=== PATIENT | male | born 1965 | race Caucasian/White ===

== ENCOUNTER 2016-09-28 17:53 | Emergency (ER) | payer OTHER ==
--- NOTE | 2016-09-28 18:47 | ED NURSING NOTES ---
Clinical Report - Nurses [facility] [place] [address] 09/28/2016 17:53 Patient: KLEVER CALI TRIAGE Triage time 1750. Acuity: LEVEL 4. Chief Complaint: RIGHT LOWER EXTREMITY PAIN and SWELLING. --18:05 Deidre Uriarte R.N. 18:00 09/28/16. BP: 107/90. HR: 75 (normal rate). RR: 16. O2 saturation: 96%. Temp: 98.2 F. Pain level now: 03/01. --18:05 Deidre Uriarte R.N. Weight: 173.2 kg stated. Height/Length: 71 inches. BMI: 53.3. --18:00 Deidre Uriarte R.N. Medications Albuterol Sulfate Inhalation. --18:03 Deidre Uriarte R.N. Midigare. --18:03 Deidre Uriarte R.N. Allergies Aspirin. Mild(rash) Ibuprofen. Mild(rash) Penicillin. --18:03 Deidre Uriarte R.N. History Arrived by private vehicle. Historian: patient. No injury occurred. This occurred (2 weeks). ( just got pain in right knee 2 weeks ago. He has seen and was referred to [facility]. They told patient they could not see him and sent referal back to and has not gotten back to patient). SOCIAL HX: Heavy tobacco smoker (cigarette)- less than 1 pack per day. No alcohol use or drug use. FALL RISK ASSESSMENT: Fall risk assessment completed. No fall risk identified. NUTRITIONAL RISK ASSESSMENT: The nutritional risk assessment revealed no deficiencies. FUNCTIONAL ASSESSMENT: Functional assessment: no impairments noted. LEARNING NEEDS ASSESSMENT: The learning needs assessment revealed no barriers. SKIN INTEGRITY ASSESSMENT: Skin integrity risk assessment completed. No skin integrity risk identified. --18:05 Deidre Uriarte R.N. PROBLEMS: Hepatitis. Gout. MRSA Infection. Asthma. Back Pain. --18:04 Uriarte, Deidre, R.N. ADDITIONAL SURGERIES: Ankle surgery. Finger fusion. Knee Surgery. --18:04 Deidre Uriarte R.N. Interventions ID band on patient. To treatment room. --18:05 Deidre Uriarte R.N. PHYSICAL ASSESSMENT 18:06 09/28/16. Ambulatory to room. GENERAL / NEURO / PSYCH: Oriented X 4. Appears in no acute distress. EXTREMITIES: Limited ROM present. Lower extremity edema. Extremity pulses are within normal limits. Neuro-vascular status intact to the extremity. Right knee: tenderness and swelling. Limited ROM secondary to pain. SKIN: Skin intact. Skin is warm and dry. --18:06 Deidre Uriarte R.N. NURSING PROGRESS NOTES 18:07 09/28/16. The plan of care for this patient includes an assessment with efforts to address the presence of pain. Two patient identifiers checked. Call light placed in reach. Side rails up x 1. Bed placed in lowest position. Brakes of bed on. Patient ready for evaluation- PA notified. --18:07 Deidre Uriarte R.N. <<STRICKEN ENTRY-- 17:45 09/28/16. BP: 113/56. HR: 103 (normal rate). RR: 18 (unlabored). O2 saturation: 96%. Pain level now: 0/10. --18:10 Deidre Uriarte R.N. --END STRIKE>> Charted on wrong patient. --18:11 Deidre Uriarte R.N. 17:45. --18:10 Deidre Uriarte R.N. 18:22 09/28/2016 Percocet (Oxycodone-Acetaminophen) PO 10/650 mg Tablets 1 tab given. Allergies verified, confirmed 5 rights and sedative warning given to the patient. --18:22 Deidre Uriarte R.N. DISPOSITION / DISCHARGE 18:47 09/28/16. Condition at departure: improved. The goals identified in the patient's plan of care were met. No learning barriers present. Discharge instructions provided and reviewed with the patient. Reviewed medication(s). Prescription(s) given to the patient ([facility]). Reviewed referrals. Patient verbalized understanding. Written instructions provided in Romansh. The patient was discharged home and accompanied by spouse. He left the Emergency Department ambulatory on crutches and via private vehicle. Spouse driving. --18:47 Deidre Uriarte R.N. 18:47 09/28/16. BP: 114/78. HR: 77. RR: 16. O2 saturation: 94%. Temp: 98.6 F. Pain level now 8/10. --18:47 Deidre Uriarte R.N. Departure time: 1850. --18:47 Deidre Uriarte R.N. Locked/Released at 09/28/2016 18:50 by Deidre Uriarte R.N.
--- NOTE | 2016-09-28 18:47 | ED NURSING NOTES ---
Clinical Report - Nurses [facility] [place] [address] 09/28/2016 17:53 Patient: KLEVER CALI TRIAGE Triage time 1750. Acuity: LEVEL 4. Chief Complaint: RIGHT LOWER EXTREMITY PAIN and SWELLING. --18:05 Deidre Uriarte R.N. 18:00 09/28/16. BP: 107/90. HR: 75 (normal rate). RR: 16. O2 saturation: 96%. Temp: 98.2 F. Pain level now: 03/01. --18:05 Deidre Uriarte R.N. Weight: 173.2 kg stated. Height/Length: 71 inches. BMI: 53.3. --18:00 Deidre Uriarte R.N. Medications Albuterol Sulfate Inhalation. --18:03 Deidre Uriarte R.N. Midigare. --18:03 Deidre Uriarte R.N. Allergies Aspirin. Mild(rash) Ibuprofen. Mild(rash) Penicillin. --18:03 Deidre Uriarte R.N. History Arrived by private vehicle. Historian: patient. No injury occurred. This occurred (2 weeks). ( just got pain in right knee 2 weeks ago. He has seen and was referred to [facility]. They told patient they could not see him and sent referal back to and has not gotten back to patient). SOCIAL HX: Heavy tobacco smoker (cigarette)- less than 1 pack per day. No alcohol use or drug use. FALL RISK ASSESSMENT: Fall risk assessment completed. No fall risk identified. NUTRITIONAL RISK ASSESSMENT: The nutritional risk assessment revealed no deficiencies. FUNCTIONAL ASSESSMENT: Functional assessment: no impairments noted. LEARNING NEEDS ASSESSMENT: The learning needs assessment revealed no barriers. SKIN INTEGRITY ASSESSMENT: Skin integrity risk assessment completed. No skin integrity risk identified. --18:05 Deidre Uriarte R.N. PROBLEMS: Hepatitis. Gout. MRSA Infection. Asthma. Back Pain. --18:04 Uriarte, Deidre, R.N. ADDITIONAL SURGERIES: Ankle surgery. Finger fusion. Knee Surgery. --18:04 Deidre Uriarte R.N. Interventions ID band on patient. To treatment room. --18:05 Deidre Uriarte R.N. PHYSICAL ASSESSMENT 18:06 09/28/16. Ambulatory to room. GENERAL / NEURO / PSYCH: Oriented X 4. Appears in no acute distress. EXTREMITIES: Limited ROM present. Lower extremity edema. Extremity pulses are within normal limits. Neuro-vascular status intact to the extremity. Right knee: tenderness and swelling. Limited ROM secondary to pain. SKIN: Skin intact. Skin is warm and dry. --18:06 Deidre Uriarte R.N. NURSING PROGRESS NOTES 18:07 09/28/16. The plan of care for this patient includes an assessment with efforts to address the presence of pain. Two patient identifiers checked. Call light placed in reach. Side rails up x 1. Bed placed in lowest position. Brakes of bed on. Patient ready for evaluation- PA notified. --18:07 Deidre Uriarte R.N. <<STRICKEN ENTRY-- 17:45 09/28/16. BP: 113/56. HR: 103 (normal rate). RR: 18 (unlabored). O2 saturation: 96%. Pain level now: 0/10. --18:10 Deidre Uriarte R.N. --END STRIKE>> Charted on wrong patient. --18:11 Deidre Uriarte R.N. 17:45. --18:10 Deidre Uriarte R.N. 18:22 09/28/2016 Percocet (Oxycodone-Acetaminophen) PO 10/650 mg Tablets 1 tab given. Allergies verified, confirmed 5 rights and sedative warning given to the patient. --18:22 Deidre Uriarte R.N. DISPOSITION / DISCHARGE 18:47 09/28/16. Condition at departure: improved. The goals identified in the patient's plan of care were met. No learning barriers present. Discharge instructions provided and reviewed with the patient. Reviewed medication(s). Prescription(s) given to the patient ([facility]). Reviewed referrals. Patient verbalized understanding. Written instructions provided in Greenlandic. The patient was discharged home and accompanied by spouse. He left the Emergency Department ambulatory on crutches and via private vehicle. Spouse driving. --18:47 Deidre Uriarte R.N. 18:47 09/28/16. BP: 114/78. HR: 77. RR: 16. O2 saturation: 94%. Temp: 98.6 F. Pain level now 8/10. --18:47 Deidre Uriarte R.N. Departure time: 1850. --18:47 Deidre Uriarte R.N. Locked/Released at 09/28/2016 18:50 by Deidre Uriarte R.N.
--- NOTE | 2016-09-28 18:47 | ED CLINICAL REPORT ---
Clinical Report - Physicians/Mid Levels [address] [address] [place] [address] 09/28/2016 17:53 Patient: KLEVER CALI Time Seen: 18:56 Sep 28 2016. Arrived- By private vehicle. Historian- patient. HISTORY OF PRESENT ILLNESS Chief Complaint: Injury to right knee. 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 This was not caused by a direct blow, a twisting injury or an incised wound. Patient did not fall. Patient is experiencing mild pain. Patient denies injury to the head or neck. (Reports knee pain over the last 2 weeks, worsening. Saw his primary care provider, was referred to orthopedist, such referral has been lost, and he does not have current follow-up.). REVIEW OF SYSTEMS The patient complains of pain on weight bearing. All systems otherwise negative, except as recorded above. PAST HISTORY The patient has not had a prior injury to the same area. Problems: Sprain. Fall. Hepatitis. Lower Extremity Pain. Gout. MRSA Infection. Contusion. Asthma. Back Pain. Rib Fracture [RuleOut]. Additional Surgeries: Ankle surgery. Finger fusion. Knee Surgery. Medications: Midigare. Albuterol Sulfate Inhalation. Allergies: Aspirin. Mild(rash) Ibuprofen. Mild(rash) Penicillin. SOCIAL HISTORY Heavy tobacco smoker. No drug use. ADDITIONAL NOTES The nursing notes have been reviewed. PHYSICAL EXAM Vital Signs: 09/28/2016 18:00 BP: 107/90. HR: 75. RR: 16. O2 saturation: 96%. Temp: 98.2 F. Pain level now: 9/10. Appearance: Alert. Head: Head atraumatic. Eyes: Eyes normal inspection. ENT: Ears normal. Nose normal. Neck: Normal inspection. Neck supple. CVS: Normal heart rate and rhythm. Heart sounds normal. Respiratory: No respiratory distress. Breath sounds normal. Back: Normal inspection. No tenderness. No vertebral point tenderness or soft tissue tenderness. Skin: Skin warm. Normal skin color. Extremities: Right thigh. No tenderness or swelling. Right knee: mild tenderness located in the suprapatellar area. (swelling prepatella, full rom.). No ligamentous laxity present. No joint effusion. No abrasion, puncture wound or foreign body. No limitation in ROM. Right leg. No ecchymosis. Neuro, Vascular and Tendons: Vascular status intact. Motor intact. Neuro: Oriented X 3. PROGRESS AND PROCEDURES PROCEDURES (crutches for patient). Course of Care: Patient here in the ER with knee pain, with signs of pre-patellar swelling, no erythema. No warmth. Good range of motion. Tenderness on palpation. Denies any injury. Denies any work exposure where he is crawling on his knees continuously. 09/28/2016 18:47 BP: 114/78. HR: 77. RR: 16. O2 saturation: 94%. Temp: 98.6 F. Patient is stable. Symptoms better. Patient/family counseled. Disposition: Discharged. CLINICAL IMPRESSION Right prepatellar bursitis. INSTRUCTIONS Prescription Medications: Hydrocodone/APAP 5mg / 325mg: take 1 orally every 6 hours as needed for pain. Dispense ten (10). No refill. Follow-up with: [facility], , [address], , [place], [address] Follow up. Call for the next available appointment. (Electronically signed by Kellie Marino P.A.-C 09/28/2016 19:01)
--- NOTE | 2016-09-28 18:47 | ED ORDER SUMMARY ---
..... Patient: KLEVER CALI OrderSheet [facility] VisitID: [id number] [place] [address] 51y, M Registration Date/Time: 09/28/2016 ORDER SHEET Weight: 173.2 kg (stated) Allergies: Aspirin, Ibuprofen, Penicillin GENERAL ORDERS: Crutches (18:09 09/28/2016 Eliel P.A.-C) (18:18 TBergley) MEDICATION ORDERS: Percocet PO 5/325 mg (HIGH ALERT MEDICATION, NOW) (18:09 09/28/2016 Eliel Fall.A.-C) (Ack 18:19 TChapmboy R.N.) (18:22 TChapman R.N.) IV FLUIDS: ORDER SHEET NOTES: [Electronically signed by Deidre Uriarte R.N. (18:50 09/28/2016)] [Electronically signed by Kellie MarinoAMika-Mario (19:01 09/28/2016)] [Electronically locked/signed by Deidre Uriarte R.N. (18:50 09/28/2016)]
--- NOTE | 2016-09-28 18:47 | ED CLINICAL REPORT ---
Clinical Report - Physicians/Mid Levels [address] [address] [place] [address] 09/28/2016 17:53 Patient: KLEVER CALI Time Seen: 18:56 Sep 28 2016. Arrived- By private vehicle. Historian- patient. HISTORY OF PRESENT ILLNESS Chief Complaint: Injury to right knee. 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 This was not caused by a direct blow, a twisting injury or an incised wound. Patient did not fall. Patient is experiencing mild pain. Patient denies injury to the head or neck. (Reports knee pain over the last 2 weeks, worsening. Saw his primary care provider, was referred to orthopedist, such referral has been lost, and he does not have current follow-up.). REVIEW OF SYSTEMS The patient complains of pain on weight bearing. All systems otherwise negative, except as recorded above. PAST HISTORY The patient has not had a prior injury to the same area. Problems: Sprain. Fall. Hepatitis. Lower Extremity Pain. Gout. MRSA Infection. Contusion. Asthma. Back Pain. Rib Fracture [RuleOut]. Additional Surgeries: Ankle surgery. Finger fusion. Knee Surgery. Medications: Midigare. Albuterol Sulfate Inhalation. Allergies: Aspirin. Mild(rash) Ibuprofen. Mild(rash) Penicillin. SOCIAL HISTORY Heavy tobacco smoker. No drug use. ADDITIONAL NOTES The nursing notes have been reviewed. PHYSICAL EXAM Vital Signs: 09/28/2016 18:00 BP: 107/90. HR: 75. RR: 16. O2 saturation: 96%. Temp: 98.2 F. Pain level now: 9/10. Appearance: Alert. Head: Head atraumatic. Eyes: Eyes normal inspection. ENT: Ears normal. Nose normal. Neck: Normal inspection. Neck supple. CVS: Normal heart rate and rhythm. Heart sounds normal. Respiratory: No respiratory distress. Breath sounds normal. Back: Normal inspection. No tenderness. No vertebral point tenderness or soft tissue tenderness. Skin: Skin warm. Normal skin color. Extremities: Right thigh. No tenderness or swelling. Right knee: mild tenderness located in the suprapatellar area. (swelling prepatella, full rom.). No ligamentous laxity present. No joint effusion. No abrasion, puncture wound or foreign body. No limitation in ROM. Right leg. No ecchymosis. Neuro, Vascular and Tendons: Vascular status intact. Motor intact. Neuro: Oriented X 3. PROGRESS AND PROCEDURES PROCEDURES (crutches for patient). Course of Care: Patient here in the ER with knee pain, with signs of pre-patellar swelling, no erythema. No warmth. Good range of motion. Tenderness on palpation. Denies any injury. Denies any work exposure where he is crawling on his knees continuously. 09/28/2016 18:47 BP: 114/78. HR: 77. RR: 16. O2 saturation: 94%. Temp: 98.6 F. Patient is stable. Symptoms better. Patient/family counseled. Disposition: Discharged. CLINICAL IMPRESSION Right prepatellar bursitis. INSTRUCTIONS Prescription Medications: Hydrocodone/APAP 5mg / 325mg: take 1 orally every 6 hours as needed for pain. Dispense ten (10). No refill. Follow-up with: [facility], , [address], , [place], [address] Follow up. Call for the next available appointment. (Electronically signed by Kellie Marino P.A.-C 09/28/2016 19:01)
--- NOTE | 2016-09-28 18:47 | ED ORDER SUMMARY ---
..... Patient: KLEVER CALI OrderSheet [facility] VisitID: [id number] [place] [address] 51y, M Registration Date/Time: 09/28/2016 ORDER SHEET Weight: 173.2 kg (stated) Allergies: Aspirin, Ibuprofen, Penicillin GENERAL ORDERS: Crutches (18:09 09/28/2016 Eliel P.A.-C) (18:18 TBergley) MEDICATION ORDERS: Percocet PO 5/325 mg (HIGH ALERT MEDICATION, NOW) (18:09 09/28/2016 Eliel Fall.A.-C) (Ack 18:19 TChapmboy R.N.) (18:22 TChapman R.N.) IV FLUIDS: ORDER SHEET NOTES: [Electronically signed by Deidre Uriarte R.N. (18:50 09/28/2016)] [Electronically signed by Kellie MarinoAMika-Mario (19:01 09/28/2016)] [Electronically locked/signed by Deidre Uriarte R.N. (18:50 09/28/2016)]
--- NOTE | 2016-09-28 19:01 | ED MAR SUMMARY ---
..... Medication Administration Record [address] [place] [address] Patient: KLEVER CALI Visit ID: [id number] 51y, M Weight: 173.2 kg Height/Length: 71 in BMI: 53.3 ALLERGIES: Aspirin, Ibuprofen, Penicillin Given 18:22 09/28/2016 Deidre Uriarte R.N. Medication Administered: PERCOCET [PO] (OXYCODONE-ACETAMINOPHEN), Dose: 1 tab 10/650 mg Tablets PO. Medication Ordered: Percocet PO 5/325 mg (HIGH ALERT MEDICATION, NOW).
--- NOTE | 2016-09-28 19:01 | ED DISCHARGE INSTRUCTIONS ---
Patient: KLEVER CALI General Instructions [facility] VisitID: [id number] [address] [place] [id number] 51y, M Registration Date/Time: 09/28/2016 Right prepatellar bursitis. INSTRUCTIONS Prescription Medications: Hydrocodone/APAP 5mg / 325mg: take 1 orally every 6 hours as needed for pain. Dispense ten (10). No refill. Follow-up with: [facility], , [address], [place], [address] Follow up. Call for the next available appointment. ADDITIONAL INFORMATION Bursitis The larger joints of the body are surrounded bybursa. These are small, flat fluid-filled sacs which help the gliding motion of the muscles and tendons over the joints. Bursitis is an inflammation of the bursa due to injury, overuse of the joint, or infection of the bursa itself. Symptoms include pain and tenderness over a joint that is made worse with movement. Bursitis is treated with an anti-inflammatory medicine and by resting the joint. More severe cases require injection of medicine directly into the bursa. Home Care: Apply an ice pack (ice cubes in a plastic bag, wrapped in a towel) over the injured area for 20 minutes every 1-2 hours the first day. Continue this 3-4 times a day until the pain and swelling improves. Rest the painful joint and protect it from movement. This will allow the inflammation to heal faster. You may take ibuprofen (Motrin, Advil) or naproxen (Aleve, Naprosyn) to treat pain and inflammation, unless another medicine was prescribed. If you can't take these medicines, acetaminophen (Tylenol) may help with the pain, but does not treat inflammation. [NOTE: If you have chronic liver or kidney disease or ever had a stomach ulcer or GI bleeding, talk with your doctor before using these medicines.] As your symptoms improve, begin gradual motion at the joint. Do not overuse the joint, which may cause the symptoms to flare up again. Follow Up With Your Doctor If Not Improving After Three Days Of Treatment. Get Prompt Medical Attention If Any Of The Following Occur: Redness over the painful area Increasing pain or swelling at the joint Fever of 100.4F (38C) or higher, or as directed by your healthcare provider Hydrocodone Bitartrate, Acetaminophen Oral tablet What is this medicine? ACETAMINOPHEN; HYDROCODONE (a set a VAZQUEZ allyn fen; sara droe KOSepideh done) is a pain reliever. It is used to treat mild to moderate pain. How should I use this medicine? Take this medicine by mouth. Swallow it with a full glass of water. Follow the directions on the prescription label. If the medicine upsets your stomach, take the medicine with food or milk. Do not take more than you are told to take. Talk to your laundromat manager regarding the use of this medicine in children. This medicine is not approved for use in children. What side effects may I notice from receiving this medicine? Side effects that you should report to your doctor or health healthcare consultant as soon as possible: allergic reactions like skin rash, itching or hives, swelling of the face, lips, or tongue breathing problems confusion feeling faint or lightheaded, falls stomach pain yellowing of the eyes or skin Side effects that usually do not require medical attention (report to your doctor or health healthcare consultant if they continue or are bothersome): nausea, vomiting stomach upset What may interact with this medicine? alcohol antihistamines isoniazid medicines for depression, anxiety, or psychotic disturbances medicines for sleep muscle relaxants naltrexone narcotic medicines (opiates) for pain phenobarbital ritonavir tramadol What if I miss a dose? If you miss a dose, take it as soon as you can. If it is almost time for your next dose, take only that dose. Do not take double or extra doses. Where should I keep my medicine? Keep out of the reach of children. This medicine can be abused. Keep your medicine in a safe place to protect it from theft. Do not share this medicine with anyone. Selling or giving away this medicine is dangerous and against the law. Store at room temperature between 15 and 30 degrees C (59 and 86 degrees F). Protect from light. Keep container tightly closed. Throw away any unused medicine after the expiration date. Discard unused medicine and used packaging carefully. Pets and children can be harmed if they find used or lost packages. What should I tell my health care provider before I take this medicine? They need to know if you have any of these conditions: brain tumor Crohn's disease, inflammatory bowel disease, or ulcerative colitis drink more than 3 alcohol-containing drinks per day drug abuse or addiction head injury heart or circulation problems kidney disease or problems going to the bathroom liver disease lung disease, asthma, or breathing problems an unusual or allergic reaction to acetaminophen, hydrocodone, other opioid analgesics, other medicines, foods, dyes, or preservatives or trying to get breast-feeding What should I watch for while using this medicine? Tell your doctor or health healthcare consultant if your pain does not go away, if it gets worse, or if you have new or a different type of pain. You may develop tolerance to the medicine. Tolerance means that you will need a higher dose of the medicine for pain relief. Tolerance is normal and is expected if you take the medicine for a long time. Do not suddenly stop taking your medicine because you may develop a severe reaction. Your body becomes used to the medicine. This does NOT mean you are addicted. Addiction is a behavior related to getting and using a drug for a non-medical reason. If you have pain, you have a medical reason to take pain medicine. Your doctor will tell you how much medicine to take. If your doctor wants you to stop the medicine, the dose will be slowly lowered over time to avoid any side effects. You may get drowsy or dizzy when you first start taking the medicine or change doses. Do not drive, use machinery, or do anything that may be dangerous until you know how the medicine affects you. Stand or sit up slowly. There are different types of narcotic medicines (opiates) for pain. If you take more than one type at the same time, you may have more side effects. Give your health care provider a list of all medicines you use. Your doctor will tell you how much medicine to take. Do not take more medicine than directed. Call emergency for help if you have problems breathing. The medicine will cause constipation. Try to have a bowel movement at least every 2 to 3 days. If you do not have a bowel movement for 3 days, call your doctor or health healthcare consultant. Too much acetaminophen can be very dangerous. Do not take Tylenol (acetaminophen) or medicines that contain acetaminophen with this medicine. Many non-prescription medicines contain acetaminophen. Always read the labels carefully. You have been given the following additional information: Bursitis Hydrocodone Bitartrate, Acetaminophen Oral tablet (Electronically signed by Kellie Marino P.A.-C 09/28/2016 19:01)
--- NOTE | 2016-09-28 19:01 | ED DISCHARGE INSTRUCTIONS ---
Patient: KLEVER CALI General Instructions [facility] VisitID: [id number] [address] [place], [place] [id number] 51y, M Registration Date/Time: 09/28/2016 Right prepatellar bursitis. INSTRUCTIONS Prescription Medications: Hydrocodone/APAP 5mg / 325mg: take 1 orally every 6 hours as needed for pain. Dispense ten (10). No refill. Follow-up with: [facility], , [address], [place], [id number] Follow up. Call for the next available appointment. ADDITIONAL INFORMATION Bursitis The larger joints of the body are surrounded bybursa. These are small, flat fluid-filled sacs which help the gliding motion of the muscles and tendons over the joints. Bursitis is an inflammation of the bursa due to injury, overuse of the joint, or infection of the bursa itself. Symptoms include pain and tenderness over a joint that is made worse with movement. Bursitis is treated with an anti-inflammatory medicine and by resting the joint. More severe cases require injection of medicine directly into the bursa. Home Care: Apply an ice pack (ice cubes in a plastic bag, wrapped in a towel) over the injured area for 20 minutes every 1-2 hours the first day. Continue this 3-4 times a day until the pain and swelling improves. Rest the painful joint and protect it from movement. This will allow the inflammation to heal faster. You may take ibuprofen (Motrin, Advil) or naproxen (Aleve, Naprosyn) to treat pain and inflammation, unless another medicine was prescribed. If you can't take these medicines, acetaminophen (Tylenol) may help with the pain, but does not treat inflammation. [NOTE: If you have chronic liver or kidney disease or ever had a stomach ulcer or GI bleeding, talk with your doctor before using these medicines.] As your symptoms improve, begin gradual motion at the joint. Do not overuse the joint, which may cause the symptoms to flare up again. Follow Up With Your Doctor If Not Improving After Three Days Of Treatment. Get Prompt Medical Attention If Any Of The Following Occur: Redness over the painful area Increasing pain or swelling at the joint Fever of 100.4F (38C) or higher, or as directed by your healthcare provider Hydrocodone Bitartrate, Acetaminophen Oral tablet What is this medicine? ACETAMINOPHEN; HYDROCODONE (a set a VAZQUEZ allyn fen; sara droe KOSepideh done) is a pain reliever. It is used to treat mild to moderate pain. How should I use this medicine? Take this medicine by mouth. Swallow it with a full glass of water. Follow the directions on the prescription label. If the medicine upsets your stomach, take the medicine with food or milk. Do not take more than you are told to take. Talk to your boss miner regarding the use of this medicine in children. This medicine is not approved for use in children. What side effects may I notice from receiving this medicine? Side effects that you should report to your doctor or health pulmonary care nurse as soon as possible: allergic reactions like skin rash, itching or hives, swelling of the face, lips, or tongue breathing problems confusion feeling faint or lightheaded, falls stomach pain yellowing of the eyes or skin Side effects that usually do not require medical attention (report to your doctor or health pulmonary care nurse if they continue or are bothersome): nausea, vomiting stomach upset What may interact with this medicine? alcohol antihistamines isoniazid medicines for depression, anxiety, or psychotic disturbances medicines for sleep muscle relaxants naltrexone narcotic medicines (opiates) for pain phenobarbital ritonavir tramadol What if I miss a dose? If you miss a dose, take it as soon as you can. If it is almost time for your next dose, take only that dose. Do not take double or extra doses. Where should I keep my medicine? Keep out of the reach of children. This medicine can be abused. Keep your medicine in a safe place to protect it from theft. Do not share this medicine with anyone. Selling or giving away this medicine is dangerous and against the law. Store at room temperature between 15 and 30 degrees C (59 and 86 degrees F). Protect from light. Keep container tightly closed. Throw away any unused medicine after the expiration date. Discard unused medicine and used packaging carefully. Pets and children can be harmed if they find used or lost packages. What should I tell my health care provider before I take this medicine? They need to know if you have any of these conditions: brain tumor Crohn's disease, inflammatory bowel disease, or ulcerative colitis drink more than 3 alcohol-containing drinks per day drug abuse or addiction head injury heart or circulation problems kidney disease or problems going to the bathroom liver disease lung disease, asthma, or breathing problems an unusual or allergic reaction to acetaminophen, hydrocodone, other opioid analgesics, other medicines, foods, dyes, or preservatives or trying to get breast-feeding What should I watch for while using this medicine? Tell your doctor or health pulmonary care nurse if your pain does not go away, if it gets worse, or if you have new or a different type of pain. You may develop tolerance to the medicine. Tolerance means that you will need a higher dose of the medicine for pain relief. Tolerance is normal and is expected if you take the medicine for a long time. Do not suddenly stop taking your medicine because you may develop a severe reaction. Your body becomes used to the medicine. This does NOT mean you are addicted. Addiction is a behavior related to getting and using a drug for a non-medical reason. If you have pain, you have a medical reason to take pain medicine. Your doctor will tell you how much medicine to take. If your doctor wants you to stop the medicine, the dose will be slowly lowered over time to avoid any side effects. You may get drowsy or dizzy when you first start taking the medicine or change doses. Do not drive, use machinery, or do anything that may be dangerous until you know how the medicine affects you. Stand or sit up slowly. There are different types of narcotic medicines (opiates) for pain. If you take more than one type at the same time, you may have more side effects. Give your health care provider a list of all medicines you use. Your doctor will tell you how much medicine to take. Do not take more medicine than directed. Call emergency for help if you have problems breathing. The medicine will cause constipation. Try to have a bowel movement at least every 2 to 3 days. If you do not have a bowel movement for 3 days, call your doctor or health pulmonary care nurse. Too much acetaminophen can be very dangerous. Do not take Tylenol (acetaminophen) or medicines that contain acetaminophen with this medicine. Many non-prescription medicines contain acetaminophen. Always read the labels carefully. You have been given the following additional information: Bursitis Hydrocodone Bitartrate, Acetaminophen Oral tablet (Electronically signed by Kellie Marino P.A.-C 09/28/2016 19:01)
--- NOTE | 2016-09-28 19:01 | ED MAR SUMMARY ---
..... Medication Administration Record [address] [place] [address] Patient: KLEVER CALI Visit ID: [id number] 51y, M Weight: 173.2 kg Height/Length: 71 in BMI: 53.3 ALLERGIES: Aspirin, Ibuprofen, Penicillin Given 18:22 09/28/2016 Deidre Uriarte R.N. Medication Administered: PERCOCET [PO] (OXYCODONE-ACETAMINOPHEN), Dose: 1 tab 10/650 mg Tablets PO. Medication Ordered: Percocet PO 5/325 mg (HIGH ALERT MEDICATION, NOW).
--- NOTE | 2016-09-28 19:02 | ED MED RECONCILIATION SUMMARY ---
Patient: KLEVER CALI Medication Reconciliation Report [facility] VisitID: [id number] [address] [place] [address] 51y, M Registration Date/Time: 09/28/2016 Weight: 173.2 kg Height/Length: 71 in. BMI: 53.3 ALLERGIES: Aspirin, Ibuprofen, Penicillin The patient's Home Medications are listed below: THE FOLLOWING MEDICATIONS NEED TO BE RECONCILED: Albuterol Sulfate Inhalation Midigare The source(s) of the original Home Medication information: Not obtained. The following Medications were given to the patient in the Emergency Department: Percocet [PO] PO 1 tab, administered: 09/28/2016 6:22:00 PM The following Medications were prescribed to the patient: Hydrocodone/APAP 5mg / 325mg: take 1 orally every 6 hours as needed for pain. Dispense ten (10). No refill. -- Kellie Marino, PMikaAJoseeC
--- NOTE | 2016-09-28 19:02 | ED MED RECONCILIATION SUMMARY ---
Patient: KLEVER CALI Medication Reconciliation Report [facility] VisitID: [id number] [address] [place] [address] 51y, M Registration Date/Time: 09/28/2016 Weight: 173.2 kg Height/Length: 71 in. BMI: 53.3 ALLERGIES: Aspirin, Ibuprofen, Penicillin The patient's Home Medications are listed below: THE FOLLOWING MEDICATIONS NEED TO BE RECONCILED: Albuterol Sulfate Inhalation Midigare The source(s) of the original Home Medication information: Not obtained. The following Medications were given to the patient in the Emergency Department: Percocet [PO] PO 1 tab, administered: 09/28/2016 6:22:00 PM The following Medications were prescribed to the patient: Hydrocodone/APAP 5mg / 325mg: take 1 orally every 6 hours as needed for pain. Dispense ten (10). No refill. -- Kellie Marino, PMikaAJoseeC
== END 2016-09-28 18:30 | disposition home or self-care (01) ==
LOC: ED SRH 17:53
DX: M70.41 Prepatellar bursitis, right knee (principal); J45.909 Unspecified asthma, uncomplicated; F17.210 Nicotine dependence, cigarettes, uncomplicated; Z88.0 Allergy status to penicillin; Z88.8 Allergy status to other drugs, medicaments and biological substances